=== PATIENT | male | born 1960 | race American Indian/Alaskan Native ===

== ENCOUNTER 2020-03-22 10:23 | Observation (INO) | payer OTHER ==
--- NOTE | 2020-03-22 10:49 | RAD ---
XR Chest 1 View Portable History: Chest pain Comparison: None. Findings: Mild lower lobe airspace opacities. Trace effusions. No pneumothorax. Heart size is enlarge d. Pulmonary arteries are distended. Impression: 1. Low-grade lower lobe airspace opacities may reflect compressive atelectasis due to small pleural e ffusions. 2. Cardiomegaly and pulmonary hypertension.
[2020-03-22 11:07] LABS: #Basophils 0.1 thou/uL (0.0-0.2); #Eosinphils 0.4 thou/uL (0.0-0.7); #Lymphocytes 2.5 thou/uL (1.20-3.40); #Monocytes 0.6 thou/uL (0.11-0.59); #Neutrophils 5.1 thou/uL (1.40-6.50); %Basophils 0.7 % (0.0-1.0); %Eosinophils 4.9 % (0.0-10.0); %Lymphocytes 29.4 % (21.0-51.0); %Monocytes 6.6 % (0.0-10.0); %Neutrophils 58.5 % (42.0-75.0); Hemoglobin 14.4 g/dL (14.0-18.0); Mean Corpuscular HGB CONC 33.9 g/dL (32.0-36.0); Mean Corpuscular Hemoglobin 31.5 pg (27.0-31.0); Mean Corpuscular Volume 93.1 fL (78.0-98.0); Mean Platelet Volume 8.4 fL (7.4-10.4); Platelet Count 209 thou/uL (130-400); Red Blood Cell (RBC) Count 4.57 mill/uL (4.70-6.10); White Blood Cell (WBC) Count 8.6 thou/uL (4.8-10.8)
[2020-03-22] MEDS ORDERED: Morphine 4 MG/ML VIAL ONE (11:18)
[2020-03-22] MEDS ORDERED: Ondansetron PF 4 MG/2 ML Vial ONE (11:18)
[2020-03-22 11:27] LABS: ALT (SGPT) 35 U/L (8-55); AST (SGOT) 32 U/L (5-34); Albumin 4.1 g/dL (3.5-5.0); Alkaline Phosphatase 86 U/L (40-110); Anion Gap 13 mmol/L (10-20); BUN (Urea Nitrogen) 16 mg/dL (8.4-25.7); Bilirubin, Total 0.9 mg/dL (0.2-1.2); CK (CPK) 121 U/L (30-200); Calc. Creatinine Clearance 0 mL/min (70-130); Calcium 8.9 mg/dL (7.8-10.44); Carbon Dioxide 22 mmol/L (22-29); Chloride 111 mmol/L (98-107); Globulin 3.3 g/dL (2.4-3.5); Glucose 93 mg/dL (70-105); Potassium 4.6 mmol/L (3.5-5.1); Protein, Total 7.4 g/dL (6.0-8.3); Sodium 141 mmol/L (136-145)
[2020-03-22] MEDS ORDERED: Fentanyl 100 MCG/2 ML VIAL ONE ×2 (13:31→17:28)
[2020-03-22] MEDS ORDERED: Ondansetron PF 4 MG/2 ML Vial IVP PRN (15:09)
[2020-03-22] MEDS ORDERED: hydrALAZINE 20 MG/ML VIAL SLOW IVP PRN (15:14)
[2020-03-22 15:26] LABS: Troponin I Less than 0.010 ng/mL (< 0.028)
[2020-03-22] MEDS ORDERED: Fentanyl 100 MCG/2 ML VIAL SLOW IVP SCH (16:45)
--- NOTE | 2020-03-22 16:47 | PDOC.HHP ---
Hospitalist HPI chest pain History of Present Illness: Patient is 59-year-old male with PMH of CAD (CABG x2, stent x2), COPD, HTN, se izure disorder, hypothyroidism, and Hep C infection who presents to the ED with left-sided chest pain that started this morning around 9:30 AM. Pain is sharp, intermittent, radiates to the left shoulder, and associated with shortness of breath. Nitro and morphine did not help with the pain but fentanyl helped. He states he had LHC done about 10 months ago at [facility] and he was told that he has some occlusion and medical management was recommended. ED Course: Troponin negative x2. EKG showed no acute ischemic changes. Allergies/Adverse Reactions: Allergy/AdvReac Type Severity Reaction Status Date / Time No Known Allergies Allergy Unverified 03/22/20 16:00 Past History: PMHx: CAD (CABG x2, stent x2), COPD, HTN, seizure disorder, hypothyroidism, and hep C infection PSHx: CABG x2, cardiac stent placement x2 FHx: Mother: heart disease Father: Cirrhosis Social: former smoker, drinks alcohol occasionally, denies drug use Hospitalist HPI ROS Constitutional: denies: fever, chills Eyes: reports: vision change ENT: denies: throat pain Respiratory: reports: cough, shortness of breath Cardiovascular: reports: chest pain Gastrointestinal: reports: nausea. denies: vomiting, diarrhea Genitourinary: reports: dysuria, frequency Skin: reports: rash Other: positive for DELEON. Hospitalist Exam General Appearance: NAD, awake alert Eye: PERRL ENT: moist mucosa Neck: no JVD Heart: RRR, no murmur Respiratory: CTAB, no wheezes Gastrointestinal: soft, non-tender, non-distended Extremities: no edema Skin: normal turgor Neurological: no weakness Neurological - other findings: decreased sensation on the left side which pt state is chronic Musculoskeletal: no muscle wasting Psychiatric: normal affect, A&O x 3 Hospitalist Results Result Diagrams: 03/22/20 10:49 03/22/20 10:49 Lab results: Laboratory Last Values WBC 8.6 thou/uL (4.8-10.8) 03/22/20 10:49 RBC 4.57 mill/uL (4.70-6.10) L 03/22/20 10:49 Hgb 14.4 g/dL (14.0-18.0) 03/22/20 10:49 Hct 42.5 % (42.0-52.0) 03/22/20 10:49 MCV 93.1 fL (78.0-98.0) 03/22/20 10:49 MCH 31.5 pg (27.0-31.0) H 03/22/20 10:49 MCHC 33.9 g/dL (32.0-36.0) 03/22/20 10:49 RDW 12.0 % (11.5-14.5) 03/22/20 10:49 Plt Count 209 thou/uL (130-400) 03/22/20 10:49 MPV 8.4 fL (7.4-10.4) 03/22/20 10:49 Neutrophils % 58.5 % (42.0-75.0) 03/22/20 10:49 Lymphocytes % 29.4 % (21.0-51.0) 03/22/20 10:49 Monocytes % 6.6 % (0.0-10.0) 03/22/20 10:49 Eosinophils % 4.9 % (0.0-10.0) 03/22/20 10:49 Basophils % 0.7 % (0.0-1.0) 03/22/20 10:49 Neutrophils # 5.1 thou/uL (1.40-6.50) 03/22/20 10:49 Lymphocytes # 2.5 thou/uL (1.20-3.40) 03/22/20 10:49 Monocytes # 0.6 thou/uL (0.11-0.59) H 03/22/20 10:49 Eosinophils # 0.4 thou/uL (0.0-0.7) 03/22/20 10:49 Basophils # 0.1 thou/uL (0.0-0.2) 03/22/20 10:49 D-Dimer 0.33 *mcg/mL (0.27-0.43) 03/22/20 12:34 Sodium 141 mmol/L (136-145) 03/22/20 10:49 Potassium 4.6 mmol/L (3.5-5.1) 03/22/20 10:49 Chloride 111 mmol/L (98-107) H 03/22/20 10:49 Carbon Dioxide 22 mmol/L (22-29) 03/22/20 10:49 Anion Gap 13 mmol/L (10-20) 03/22/20 10:49 BUN 16 mg/dL (8.4-25.7) 03/22/20 10:49 Creatinine 0.90 mg/dL (0.7-1.3) 03/22/20 10:49 Estimated GFR (MDRD) 86 03/22/20 10:49 Glucose 93 mg/dL (70-105) 03/22/20 10:49 Calcium 8.9 mg/dL (7.8-10.44) 03/22/20 10:49 Total Bilirubin 0.9 mg/dL (0.2-1.2) 03/22/20 10:49 AST 32 U/L (5-34) 03/22/20 10:49 ALT 35 U/L (8-55) 03/22/20 10:49 Alkaline Phosphatase 86 U/L (40-110) 03/22/20 10:49 Creatine Kinase 121 U/L (30-200) 03/22/20 10:49 Troponin I Less than 0.010 ng/mL (< 0.028) 03/22/20 14:51 B-Natriuretic Peptide Less than 10.0 pg/mL (0-100) 03/22/20 10:49 Serum Total Protein 7.4 g/dL (6.0-8.3) 03/22/20 10:49 Albumin 4.1 g/dL (3.5-5.0) 03/22/20 10:49 Globulin 3.3 g/dL (2.4-3.5) 03/22/20 10:49 Albumin/Globulin Ratio 1.2 g/dL (1.2-2.2) 03/22/20 10:49 Lipase 49 U/L (8-78) 03/22/20 10:49 Chest x-ray Status: image reviewed by me EKG Status: image reviewed by me (NSR, no ST/T wave changes) Hospitalist H&P A/P (1) Chest pain Code(s): R07.9 - CHEST PAIN, UNSPECIFIED Status: Acute Assessment and Plan: Patient presented with left-sided chest pain. He has history of CAD. Troponin negative so far. EKG showed no acute ischemic changes. Patient had persistent ch est pain while at the ED, which improved with fentanyl. I talked to Dr. Díaz from cardiology who recommended to monitor him with serial troponin, EKG and do stress test tomorrow if troponin remains negative. Plan: -Trend troponin -Stress test -Nitro paste, and PRN IV morphine -cont home CAD meds -record for most recent [facility] requested from [facility]. Will follow up (2) HTN (hypertension) Code(s): I10 - ESSENTIAL (PRIMARY) HYPERTENSION Status: Acute Assessment and Plan: -cont home meds (3) CAD (coronary artery disease) Code(s): I25.10 - ATHSCL HEART DISEASE OF [place] CORONARY ARTERY W/O ANG PCTRS Status: Chronic Assessment and Plan: -cont home meds (4) COPD (chronic obstructive pulmonary disease) Status: Chronic Assessment and Plan: stable -PRN Duoneb (5) Seizure Code(s): R56.9 - UNSPECIFIED CONVULSIONS Status: Chronic Assessment and Plan: -cont home med once reconciled
[2020-03-22 18:38] LABS: Troponin I Less than 0.010 ng/mL (< 0.028)
--- NOTE | 2020-03-22 20:45 | CON ---
DATE OF CONSULTATION: HISTORY OF PRESENT ILLNESS: The patient is a 59-year-old gentleman who presents with recurrent chest discomfort. The patient has a long history of coronary artery disease. He states in 2017, he underwent coronary artery bypass surgery x2 at [facility]. The patient reports that following his surgery, he continued to have frequent chest discomfort. He underwent a repeat cardiac catheterization, the patient reports about a year ago. He states no stents were placed and he was found to have no evidence of closure of his grafts. The patient states that once again, he underwent another cardiac catheterization 6 months ago at [facility]. He states again that he had no stents placed. The patient reports that he has chest discomfort several times a week. The discomfort can last for hours at a time. He uses sublingual nitroglycerin, tramadol, and Motrin for his pain. The patient states he had chest pain intermittently throughout the day yesterday. He used multiple tablets of tramadol. Today, the patient took three nitroglycerin tablets and continued to have chest pain, was transferred for further evaluation. The patient states his chest pain does not resolve. It has been continuous today. The patient receives no relief from his nitroglycerin tablets. He does report that the pain does seem to lessen with fentanyl and morphine. The patient continues to have persistent discomfort. PAST MEDICAL HISTORY: 1. Coronary artery disease. 2. Hypertension. 3. Dyslipidemia. 4. He has a seizure disorder. 5. COPD. 6. Hepatitis C infection. PAST SURGICAL HISTORY: Coronary artery bypass graft surgery. SOCIAL HISTORY: Nonsmoker. ALLERGIES: NO KNOWN DRUG ALLERGIES. FAMILY HISTORY: Positive family history of heart disease. PHYSICAL EXAMINATION: GENERAL: This is an anxious gentleman. VITAL SIGNS: Blood pressure 110/70. NECK: Showed no jugular venous distention. LUNGS: Clear to auscultation. HEART: Regular rate and rhythm. Normal S1, S2. No murmurs. ABDOMEN: Nondistended. EXTREMITIES: Show no edema. VASCULAR: Radial pulse 2+. LABORATORY DATA: Sodium 141, potassium 4.6, chloride 111, bicarbonate 22, BUN 16, creatinine 0.9. Troponin less than 0.01. White blood cell count 8.6, hemoglobin 14.4, hematocrit 42.5, platelets are 209. EKG normal sinus rhythm with a Q-wave suggestive of a possible previous septal infarct with no acute ST-T wave changes. IMPRESSION: 1. Atypical chest pain. 2. History of coronary artery bypass surgery x2. 3. Hypertension. 4. Chronic obstructive pulmonary disease. 5. Hepatitis C. This gentleman has had prolonged episodes of chest discomfort with no acute EKG changes. The patient also has cardiac enzymes that are unremarkable. We will try to obtain records from [facility]. We will follow this patient with you through his hospitalization. Job ID: [id number] MTDD
[2020-03-22] MEDS: Nitroglycerin 2% Ointment 1 INCH/1 GM Packet TOP SCH (21:21)
[2020-03-22] MEDS: Atorvastatin Calcium 40 MG TAB PO SCH (21:21)
[2020-03-22 22:47] LABS: Bilirubin Negative (Negative); Blood, Urine Negative (Negative); Clarity Clear (Clear); Glucose, Urine (Dipstick) Normal (Negative); Ketone, Urine Negative (Negative); Leukocyte Negative Leu/uL (Negative); Nitrite Negative (Negative); Protein, Urine (Dipstick) Negative (Neg-Trace); Specific Gravity, Urine 1.025 (1.002-1.036); Urobilinogen Normal mg/dL (Less than 2)
[2020-03-22 23:03] VITALS: BMI 29.2
[2020-03-23 03:48] LABS: #Basophils 0.1 thou/uL (0.0-0.2); #Eosinphils 0.6 thou/uL (0.0-0.7); #Lymphocytes 2.4 thou/uL (1.20-3.40); #Monocytes 0.6 thou/uL (0.11-0.59); #Neutrophils 3.6 thou/uL (1.40-6.50); %Eosinophils 7.8 % (0.0-10.0); %Monocytes 8.7 % (0.0-10.0); %Neutrophils 49.5 % (42.0-75.0); Hemoglobin 14.2 g/dL (14.0-18.0); Mean Corpuscular HGB CONC 33.9 g/dL (32.0-36.0); Mean Corpuscular Hemoglobin 31.2 pg (27.0-31.0); Mean Corpuscular Volume 91.9 fL (78.0-98.0); Mean Platelet Volume 8.9 fL (7.4-10.4); Platelet Count 196 thou/uL (130-400); RBC Distribution Width 11.8 % (11.5-14.5); Red Blood Cell (RBC) Count 4.55 mill/uL (4.70-6.10); White Blood Cell (WBC) Count 7.3 thou/uL (4.8-10.8)
[2020-03-23 04:13] LABS: Anion Gap 13 mmol/L (10-20); BUN (Urea Nitrogen) 16 mg/dL (8.4-25.7); Calc. Creatinine Clearance 122 mL/min (70-130); Calcium 8.7 mg/dL (7.8-10.44); Carbon Dioxide 20 mmol/L (22-29); Cardiac Risk 4.6 (Less than 4.5); Chloride 110 mmol/L (98-107); Cholesterol 125 mg/dl (< 200 Desired); Glucose 102 mg/dL (70-105); HDL Cholesterol 27 mg/dL (>60 Neg Risk); LDL Cholesterol, Calculated 74 mg/dL; Potassium 4.3 mmol/L (3.5-5.1); Sodium 139 mmol/L (136-145); Triglycerides 118 mg/dL (Less than 150)
[2020-03-23] MEDS: Morphine 2 MG/ML VIAL SLOW IVP PRN ×2 (05:07→12:03)
[2020-03-23] MEDS: Levothyroxine Sodium 50 MCG TAB PO SCH (05:07)
[2020-03-23] MEDS: Nitroglycerin 2% Ointment 1 INCH/1 GM Packet TOP SCH ×3 (05:08→21:00)
[2020-03-23 06:37] LABS: SARS-CoV-2 PCR by NAA Not Detected (NotDetected)
[2020-03-23] MEDS ORDERED: FLU VACC QS2020-21(6MOS UP)/PF 60 MCG/0.5 ML SYRINGE IM ONE (09:00)
[2020-03-23] MEDS ORDERED: Non-Formulary Item 1 EACH (Albuterol Sulfate [Proair Hfa] 8.5 GM Hfa.Aer.Ad) INH PRN (09:05)
[2020-03-23] MEDS ORDERED: Nitroglycerin 0.4 MG TAB (25 Tab Bottle) SL PRN (09:05)
[2020-03-23] MEDS: Aripiprazole 15 MG TAB PO SCH (09:05)
[2020-03-23] MEDS ORDERED: Bisacodyl 5 MG TAB PO PRN (09:06)
[2020-03-23] MEDS: Carvedilol 6.25 MG TAB PO SCH ×2 (09:06→16:30)
[2020-03-23] MEDS ORDERED: Cepastat Lozenges 1 LOZ PO PRN (09:06)
[2020-03-23] MEDS ORDERED: Zolpidem Tartrate 5 MG TAB PO PRN (09:06)
[2020-03-23] MEDS ORDERED: Calcium Carbonate 500 MG ChewTAB PO PRN (09:06)
[2020-03-23] MEDS: Aspirin Chewable 81 MG TAB PO SCH (09:06)
[2020-03-23] MEDS ORDERED: Ondansetron ODT 4 MG TAB PO PRN (09:06)
[2020-03-23] MEDS ORDERED: Loratadine 10 MG TAB PO PRN (09:06)
[2020-03-23] MEDS ORDERED: GUAIFENESIN SF SOLN 200 MG/10 ML UDCUP PO PRN (09:06)
[2020-03-23] MEDS ORDERED: Loperamide HCl 2 MG CAP PO PRN (09:06)
[2020-03-23] MEDS ORDERED: Senokot S 8.6-50 MG TAB PO PRN (09:06)
[2020-03-23] MEDS ORDERED: HYDROcodone/Acetaminophen 5/325 mg Tablet PO PRN (09:06)
[2020-03-23] MEDS ORDERED: Sodium Chloride 0.65% Nasal 44 ML BOT EA NARE PRN (09:06)
[2020-03-23] MEDS: Acetaminophen 325 MG TAB PO PRN ×3 (09:25→20:59)
[2020-03-23] MEDS ORDERED: Albuterol 200 PUFF (6.7GM INHALER) INH PRN (09:42)
[2020-03-23] MEDS: Nitroglycerin 0.4 MG TAB (25 Tab Bottle) SL PRN ×2 (12:01→12:06)
--- NOTE | 2020-03-23 13:50 | PDOC.HOSPP ---
- Subjective Encounter Date: 03/23/20 Encounter Time: 11:00 Subjective: Patient seen and examined. No new complaints. No overnight events - Objective Vital Signs & Weight: Vital Signs (12 hours) Temp Pulse Resp BP BP Pulse Ox 03/23/20 11:20 98.4 F 75 14 117/66 100 03/23/20 09:06 116/79 03/23/20 07:40 97.7 F 69 15 116/79 98 03/23/20 03:22 98.4 F 75 17 106/65 92 L Weight Weight 215 lb 13.321 oz I&O: 03/22/20 03/23/20 03/24/20 06:59 06:59 06:59 Intake Total 240 480 Output Total 450 Balance -210 480 Result Diagrams: 03/23/20 03:08 03/23/20 03:08 Radiology Reviewed by me: Yes EKG Reviewed by me: Yes Hospitalist ROS - Review of Systems ENT: denies: ear pain, ear discharge, nose pain, nose discharge, nose congestion, mouth pain, mouth swelling, throat pain, throat swelling, other Respiratory: denies: cough, dry, shortness of breath, hemoptysis, SOB with excertion, pleuritic pain, sputum, wheezing, other Cardiovascular: denies: chest pain, palpitations, orthopnea, paroxysmal noc. dyspnea, edema, light headedness, other Gastrointestinal: denies: nausea, vomiting, abdominal pain, diarrhea, constipation, melena, hematochezia, other Genitourinary: denies: dysuria, frequency, incontinence, hematuria, retention, other Musculoskeletal: denies: neck pain, shoulder pain, arm pain, back pain, hand pain, leg pain, foot pain, other - Medication Medications: Active Medications Generic Name Dose Route Start Last Admin Trade Name Freq PRN Reason Stop Dose Admin Acetaminophen 650 mg 03/22/20 15:09 03/23/20 09:25 Acetaminophen 325 Mg Tab PO 650 mg Q4H PRN Administration Headache/Fever/Mild Pain (1-3) Aripiprazole 15 mg 03/23/20 09:00 03/23/20 09:05 Aripiprazole 15 Mg Tab PO 15 mg DAILY OZZY Administration Aspirin 81 mg 03/23/20 09:00 03/23/20 09:06 Aspirin Chewable 81 Mg Tab PO 81 mg DAILY OZZY Administration Atorvastatin Calcium 40 mg 03/22/20 21:00 03/22/20 21:21 Atorvastatin Calcium 40 Mg Tab PO 40 mg HS OZZY Administration Carvedilol 6.25 mg 03/23/20 08:00 03/23/20 09:06 Carvedilol 6.25 Mg Tab PO 6.25 mg BID-WM OZZY Administration Isosorbide Mononitrate 60 mg 03/23/20 09:00 03/23/20 09:06 Isosorbide Mononitrate Er 60 Mg Tab PO 60 mg DAILY OZZY Administration Levothyroxine Sodium 50 mcg 03/23/20 06:00 03/23/20 05:07 Levothyroxine Sodium 50 Mcg Tab PO 50 mcg 0600 [facility] Administration Morphine Sulfate 2 mg 03/22/20 15:09 03/23/20 12:03 Morphine 2 Mg/Ml Vial SLOW IVP 2 mg Q5MIN PRN Administration Chest Pain Nitroglycerin 0.4 mg 03/22/20 15:09 03/23/20 12:06 Nitroglycerin 0.4 Mg Tab (25 Tab Bottle) SL 0.4 mg Q5MIN PRN Administration Chest Pain Nitroglycerin 0.5 inch 03/22/20 22:00 03/23/20 05:08 Nitroglycerin 2% Ointment 1 Inch/1 Gm Packet TOP Not Given Q8HR [facility] Nitroglycerin 0.4 mg 03/23/20 09:05 03/23/20 11:56 Nitroglycerin 0.4 Mg Tab (25 Tab Bottle) SL 0.4 mg PRN PRN Administration Chest Pain Hospitalist Exam Vitals: Vital Signs (12 hours) Temp Pulse Resp BP BP Pulse Ox 03/23/20 11:20 98.4 F 75 14 117/66 100 03/23/20 09:06 116/79 03/23/20 07:40 97.7 F 69 15 116/79 98 03/23/20 03:22 98.4 F 75 17 106/65 92 L Weight Weight 215 lb 13.321 oz General Appearance: NAD, awake alert Eye: PERRL, anicteric sclera ENT: normocephalic atraumatic, no oropharyngeal lesions Neck: supple, symmetric, no JVD, no thyromegaly Heart: RRR, no murmur, no gallops, no rubs Respiratory: CTAB, no wheezes, no rales, no ronchi Gastrointestinal: soft, non-tender, non-distended, normal bowel sounds Extremities: no cyanosis, no clubbing, no edema Skin: normal turgor, no lesions Neurological: no focal deficits Musculoskeletal: normal tone, normal strength Psychiatric: normal affect, normal behavior Hosp A/P (1) Chest pain Code(s): R07.9 - CHEST PAIN, UNSPECIFIED Status: Acute (2) HTN (hypertension) Code(s): I10 - ESSENTIAL (PRIMARY) HYPERTENSION Status: Acute (3) CAD (coronary artery disease) Code(s): I25.10 - ATHSCL HEART DISEASE OF [place] CORONARY ARTERY W/O ANG PCTRS Status: Chronic (4) COPD (chronic obstructive pulmonary disease) Status: Chronic (5) Seizure Code(s): R56.9 - UNSPECIFIED CONVULSIONS Status: Chronic - Plan old records reviewed/req Await records from [facility] as patient had recent cardiac cath If cardiology clears him then will discharge him today to [facility] Medication reviewed and continue for symptomatic and supportive care Acute coronary syndrome has been ruled out
--- NOTE | 2020-03-23 13:53 | PDOC.DS.DS ---
Provider Date of Admission: 03/22/20 14:41 Date of Discharge: 03/24/20 Admitting Provider: Cuca Crowell MD Consultations: Cardiology Primary Care Physician: NO PCP PROVIDER Course Hospital Course: 59-year-old male who has hypertension, COPD, coronary artery disease who was admitted yesterday for chest pain, on admission EKG was nonspecific, without any acute ischemic changes, his troponin remained negative, his telemetry remained unremarkable, patient was observed on telemetry floor, cardiology was consulted, cardiology requested records from [facility] because patient had recent cardiac catheterization, acute coronary syndrome has been ruled out, if cardiology clears then will consider discharging him back to [facility]. He will continue all his previous medication Resuscitation Status: 03/22/20 15:09 Resuscitation Status Routine Resuscitation Status: FULL: Full Resuscitation Discussed with: Patient Lab Results: 03/23/20 03:08 03/23/20 03:08 Abnormal Lab Results - Last 48 hrs 03/22/20 10:49: RBC 4.57 L, MCH 31.5 H, Monocytes # 0.6 H 03/22/20 10:49: Chloride 111 H 03/23/20 03:08: Chloride 110 H, Carbon Dioxide 20 L 03/23/20 03:08: RBC 4.55 L, Hct 41.8 L, MCH 31.2 H, Monocytes # 0.6 H Vitals: Vital Signs (12 hours) Temp Pulse Resp BP BP Pulse Ox 03/23/20 11:20 98.4 F 75 14 117/66 100 03/23/20 09:06 116/79 03/23/20 07:40 97.7 F 69 15 116/79 98 03/23/20 03:22 98.4 F 75 17 106/65 92 L Weight Weight 215 lb 13.321 oz Physical Exam: The patient was seen and examined on the day of discharge. General Appearance: NAD, awake alert Eye: PERRL, anicteric sclera ENT: normocephalic atraumatic, no oropharyngeal lesions Neck: supple, symmetric, no JVD, no thyromegaly Respiratory: CTAB, no wheezes, no rales, no ronchi Cardiovascular: RRR, no murmur, no gallops, no rubs Gastrointestinal: soft, non-tender, non-distended, normal bowel sounds Extremities: no cyanosis, no clubbing, no edema Skin: normal turgor, no lesions Neurological: no focal deficits Musculoskeletal: normal tone, normal strength PSYCH: normal affect, normal behavior Problem (1) Chest pain Code(s): R07.9 - CHEST PAIN, UNSPECIFIED Status: Acute (2) HTN (hypertension) Code(s): I10 - ESSENTIAL (PRIMARY) HYPERTENSION Status: Acute (3) CAD (coronary artery disease) Code(s): I25.10 - ATHSCL HEART DISEASE OF [place] CORONARY ARTERY W/O ANG PCTRS Status: Chronic (4) COPD (chronic obstructive pulmonary disease) Status: Chronic (5) Seizure Code(s): R56.9 - UNSPECIFIED CONVULSIONS Status: Chronic Plan Home Medications: Medication Instructions Recorded Confirmed Type ARIPiprazole [Abilify] 30 mg PO HS 03/22/20 03/22/20 History Albuterol Sulfate [Proair HFA] 2 puff INH Q4HR PRN 03/22/20 03/22/20 History Aspirin [Aspirin EC] 81 mg PO DAILY 03/22/20 03/22/20 History Atorvastatin Calcium 80 mg PO HS 03/22/20 03/22/20 History Carvedilol [Coreg] 6.25 mg PO BID 03/22/20 03/22/20 History Isosorbide Mononitrate [Isosorbide 60 mg PO DAILY 03/22/20 03/22/20 History Mononitrate ER] Levothyroxine Sodium 50 mcg PO DAILY 03/22/20 03/22/20 History [Levothyroxine] Virgie Carbonate 600 mg PO HS 03/22/20 03/22/20 History Nitroglycerin 0.4 mg SL PRN PRN 03/22/20 03/22/20 History Allergies: No Known Allergies Allergy (Unverified 03/22/20 16:00) Activity:: Activity as Tolerated Nourishment:: Heart Healthy Diet Therapies:: Not Applicable Equipment/Supplies:: Not Applicable IV Therapy:: Not Applicable Referrals: PROVIDER,NO PCP [Primary Care Provider] - (Follow up with your physician at [facility] for further care.) Disposition: [facility] Quality CORE MEASURES:: N/A
[2020-03-23 14:06] LABS: Troponin I Less than 0.010 ng/mL (< 0.028)
[2020-03-23] MEDS: Atorvastatin Calcium 40 MG TAB PO SCH (20:59)
[2020-03-23] MEDS ORDERED: Non-Formulary Item 1 EACH (Lithium Carbonate [Lithium Carbonate] 300 MG Tablet) PO SCH (21:00)
[2020-03-24] MEDS: Nitroglycerin 0.4 MG TAB (25 Tab Bottle) SL PRN (01:10)
[2020-03-24] MEDS: Acetaminophen 325 MG TAB PO PRN ×3 (01:11→09:19)
[2020-03-24 04:39] LABS: #Basophils 0.1 thou/uL (0.0-0.2); #Eosinphils 0.5 thou/uL (0.0-0.7); #Lymphocytes 1.9 thou/uL (1.20-3.40); #Monocytes 0.7 thou/uL (0.11-0.59); %Basophils 0.6 % (0.0-1.0); %Eosinophils 5.3 % (0.0-10.0); %Lymphocytes 21.1 % (21.0-51.0); %Monocytes 7.3 % (0.0-10.0); %Neutrophils 65.8 % (42.0-75.0); Hemoglobin 14.4 g/dL (14.0-18.0); Mean Corpuscular HGB CONC 34.4 g/dL (32.0-36.0); Mean Corpuscular Hemoglobin 31.5 pg (27.0-31.0); Mean Corpuscular Volume 91.6 fL (78.0-98.0); Mean Platelet Volume 8.4 fL (7.4-10.4); Platelet Count 199 thou/uL (130-400); RBC Distribution Width 11.9 % (11.5-14.5); Red Blood Cell (RBC) Count 4.56 mill/uL (4.70-6.10); White Blood Cell (WBC) Count 9.2 thou/uL (4.8-10.8)
[2020-03-24 04:57] LABS: Anion Gap 11 mmol/L (10-20); BUN (Urea Nitrogen) 15 mg/dL (8.4-25.7); Calc. Creatinine Clearance 127 mL/min (70-130); Calcium 8.9 mg/dL (7.8-10.44); Carbon Dioxide 24 mmol/L (22-29); Chloride 109 mmol/L (98-107); Glucose 99 mg/dL (70-105); Sodium 140 mmol/L (136-145)
[2020-03-24] MEDS: Levothyroxine Sodium 50 MCG TAB PO SCH (05:14)
[2020-03-24 07:17] VITALS: TEMP 98.2
[2020-03-24] MEDS: Nitroglycerin 2% Ointment 1 INCH/1 GM Packet TOP SCH (07:21)
[2020-03-24] MEDS: Carvedilol 6.25 MG TAB PO SCH (09:20)
[2020-03-24] MEDS: Aspirin Chewable 81 MG TAB PO SCH (09:20)
[2020-03-24] MEDS: Aripiprazole 15 MG TAB PO SCH (09:20)
[2020-03-24 09:21] VITALS: BP 112/66
[2020-03-24 09:25] LABS: Troponin I Less than 0.010 ng/mL (< 0.028)
== END 2020-03-24 10:26 ==
LOC: ERS 10:23 → EEVIPCON 10:23 → 2NO 14:41
PROVIDERS: ADMIT Internal Medicine; ATTEND Internal Medicine
DX: R07.89 Other chest pain (principal); I10 Essential (primary) hypertension; I25.10 Atherosclerotic heart disease of native coronary artery without angina pectoris; J44.9 Chronic obstructive pulmonary disease, unspecified; G40.909 Epilepsy, unspecified, not intractable, without status epilepticus; E03.9 Hypothyroidism, unspecified; B19.20 Unspecified viral hepatitis C without hepatic coma; E78.5 Hyperlipidemia, unspecified; I27.20 Pulmonary hypertension, unspecified; Z87.891 Personal history of nicotine dependence; Z79.82 Long term (current) use of aspirin; Z79.899 Other long term (current) drug therapy; Z95.1 Presence of aortocoronary bypass graft; Z95.5 Presence of coronary angioplasty implant and graft; Z20.822 Contact with and (suspected) exposure to COVID-19
CPT/HCPCS: 36415; 71045; 80048; 80053; 80061; 81003; 82550; 83690; 83880; 84484; 85025; 85379; 87635; 90471; 90662; 90732; 93005; 93010; 96374; 96375; 96376; G0008; G0009; G0378; J2270; J2405; J3010; U0003; U0005

== ENCOUNTER 2020-05-21 17:26 | Emergency (ER) | payer OTHER ==
[2020-05-21 18:05] LABS: #Eosinphils 0.3 thou/uL (0.0-0.7); #Lymphocytes 2.8 thou/uL (1.20-3.40); #Monocytes 0.6 thou/uL (0.11-0.59); #Neutrophils 4.9 thou/uL (1.40-6.50); %Basophils 0.5 % (0.0-1.0); %Eosinophils 3.8 % (0.0-10.0); %Monocytes 7.3 % (0.0-10.0); %Neutrophils 56.4 % (42.0-75.0); Hemoglobin 14.7 g/dL (14.0-18.0); Mean Corpuscular HGB CONC 34.1 g/dL (32.0-36.0); Mean Corpuscular Hemoglobin 31.6 pg (27.0-31.0); Mean Corpuscular Volume 92.8 fL (78.0-98.0); Mean Platelet Volume 8.2 fL (7.4-10.4); Platelet Count 206 thou/uL (130-400); RBC Distribution Width 11.8 % (11.5-14.5); Red Blood Cell (RBC) Count 4.65 mill/uL (4.70-6.10); White Blood Cell (WBC) Count 8.6 thou/uL (4.8-10.8)
[2020-05-21 18:26] LABS: ALT (SGPT) 39 U/L (8-55); AST (SGOT) 31 U/L (5-34); Albumin 4.2 g/dL (3.5-5.0); Alkaline Phosphatase 97 U/L (40-110); Anion Gap 12 mmol/L (10-20); BUN (Urea Nitrogen) 16 mg/dL (8.4-25.7); Calc. Creatinine Clearance 0 mL/min (70-130); Calcium 8.5 mg/dL (7.8-10.44); Carbon Dioxide 21 mmol/L (22-29); Chloride 109 mmol/L (98-107); Globulin 3.1 g/dL (2.4-3.5); Glucose 95 mg/dL (70-105); Lipase 50 U/L (8-78); Protein, Total 7.3 g/dL (6.0-8.3); Sodium 138 mmol/L (136-145)
[2020-05-21] MEDS ORDERED: Fentanyl 100 MCG/2 ML VIAL ONE (18:42)
== END 2020-05-22 00:55 | disposition short-term general hospital (02) ==
LOC: ERS 17:26
DX: R07.2 Precordial pain (principal); E78.5 Hyperlipidemia, unspecified; I25.10 Atherosclerotic heart disease of native coronary artery without angina pectoris; J44.9 Chronic obstructive pulmonary disease, unspecified; I10 Essential (primary) hypertension; E03.9 Hypothyroidism, unspecified; Z79.899 Other long term (current) drug therapy; Z79.82 Long term (current) use of aspirin
CPT/HCPCS: 36415; 71045; 80053; 83690; 84484; 85025; 93005; 94760; 96374; J3010

== ENCOUNTER 2020-06-14 11:05 | Emergency (ER) | payer OTHER ==
[2020-06-14 11:37] LABS: #Basophils 0.1 thou/uL (0.0-0.2); #Eosinphils 0.3 thou/uL (0.0-0.7); #Lymphocytes 2.1 thou/uL (1.20-3.40); #Monocytes 0.5 thou/uL (0.11-0.59); #Neutrophils 3.5 thou/uL (1.40-6.50); %Eosinophils 4.8 % (0.0-10.0); %Lymphocytes 32.9 % (21.0-51.0); %Monocytes 7.3 % (0.0-10.0); %Neutrophils 53.9 % (42.0-75.0); Hemoglobin 14.9 g/dL (14.0-18.0); Mean Corpuscular Hemoglobin 31.3 pg (27.0-31.0); Mean Corpuscular Volume 92.1 fL (78.0-98.0); Mean Platelet Volume 7.8 fL (7.4-10.4); Platelet Count 222 thou/uL (130-400); RBC Distribution Width 11.6 % (11.5-14.5); Red Blood Cell (RBC) Count 4.76 mill/uL (4.70-6.10); White Blood Cell (WBC) Count 6.5 thou/uL (4.8-10.8)
[2020-06-14 12:04] LABS: ALT (SGPT) 35 U/L (8-55); AST (SGOT) 29 U/L (5-34); Albumin 4.1 g/dL (3.5-5.0); Alkaline Phosphatase 95 U/L (40-110); Anion Gap 12 mmol/L (10-20); BUN (Urea Nitrogen) 15 mg/dL (8.4-25.7); Bilirubin, Total 0.6 mg/dL (0.2-1.2); Calc. Creatinine Clearance 0 mL/min (70-130); Carbon Dioxide 22 mmol/L (22-29); Chloride 111 mmol/L (98-107); Globulin 3.6 g/dL (2.4-3.5); Glucose 86 mg/dL (70-105); Potassium 4.2 mmol/L (3.5-5.1); Protein, Total 7.7 g/dL (6.0-8.3); Sodium 141 mmol/L (136-145)
[2020-06-14] MEDS ORDERED: Acetaminophen 500 MG TAB ONE (12:41)
== END 2020-06-14 21:27 | disposition short-term general hospital (02) ==
LOC: EEVIPCON 11:05 → ERS 11:05
DX: R07.9 Chest pain, unspecified (principal); E78.5 Hyperlipidemia, unspecified; J44.9 Chronic obstructive pulmonary disease, unspecified; I10 Essential (primary) hypertension; E03.9 Hypothyroidism, unspecified; Z79.82 Long term (current) use of aspirin; Z79.899 Other long term (current) drug therapy
CPT/HCPCS: 36415; 71045; 80053; 84484; 85025; 93005